=== PATIENT | female | born 1980 | race Two or more races ===

== ENCOUNTER 2021-05-13 15:02 | Emergency (ER) | payer OTHER ==
[~2021-05-13] VITALS: Ht 165.1 cm; Wt 59.1 kg
[2021-05-13 15:05] VITALS: BP 135/85
== END 2021-05-13 16:24 | disposition left against medical advice (07) ==
LOC: EMS 15:02
DX: M79.601 Pain in right arm (principal); F17.210 Nicotine dependence, cigarettes, uncomplicated; Z53.21 Procedure and treatment not carried out due to patient leaving prior to being seen by health care provider